=== PATIENT | female | born 1975 | race African-American/Black ===

== ENCOUNTER 2018-07-15 23:18 | Emergency (ER) | payer BC, MEDICAID ==
[~2018-07-15] VITALS: Ht 149.9 cm; Wt 68.0 kg
[~2018-07-15 23:18] MED LIST: AUG500 PO; CLONIDINE HCL0.1 MG PO; FLEXERIL10 MG PO; LAC PO; NORCO1 TA1 PO; PERCOCET1 TA1 PO; SOMA350 MG PO; TAMOXIFEN CITRA20 MG PO; TRAMADOL HCL50 MG PO; VICODIN1 TA1 PO; XAN1 GT
[2018-07-15 23:24] VITALS: Ht 149.9 cm; Wt 68.0 kg
[2018-07-16 00:45] LABS: CALCIUM 8.5 mg/dL (8.5-10.1); CHLORIDE SERUM 107 mmol/L (98-107); CREATININE SERUM 0.9 mg/dL (0.6-1.0); GFR1 > 60 mL/min; GLUCOSE SERUM 103 mg/dL (74-106); POTASSIUM SERUM 3.5 mmol/L (3.5-5.1); SODIUM SERUM 139 mmol/L (136-145)
[2018-07-16 00:50] LABS: ALBUMIN 3.5 g/dL (3.4-5.0); ALKALINE PHOSPHATASE 92 U/L (46-116); ALT/SGPT 29 U/L (14-59); AST/SGOT 24 U/L (15-37); BILIRUBIN TOTAL 0.1 mg/dL (0.20-1.00); TOTAL PROTEIN, SERUM 7.5 g/dL (6.4-8.2)
[2018-07-16 00:54] LABS: BASOPHIL % 0.5 % (0-2); PLATELET COUNT 206 x10^3mcL (130-400); RED CELL DISTRIBUTION WIDTH 14.5 % (11.5-14.5)
[2018-07-16 03:02] VITALS: BP 112/72
== END 2018-07-16 03:02 | disposition home or self-care (01) ==
LOC: ED 23:18
PROVIDERS: Emergency Medicine
DX: J20.9 Acute bronchitis, unspecified (principal); Z88.1 Allergy status to other antibiotic agents; Z90.710 Acquired absence of both cervix and uterus; Z85.3 Personal history of malignant neoplasm of breast; Z98.890 Other specified postprocedural states
CPT/HCPCS: J2270; J2405; J7030; Q0092

== ENCOUNTER 2018-12-17 01:36 | Emergency (ER) | payer BC, MEDICAID ==
[~2018-12-17] VITALS: Ht 149.9 cm; Wt 68.7 kg
[2018-12-17 01:43] VITALS: Ht 149.9 cm; Wt 68.7 kg
[2018-12-17 06:03] VITALS: BP 102/59
== END 2018-12-17 06:03 | disposition home or self-care (01) ==
LOC: ED 01:36
DX: M54.5 Low back pain (principal); G62.9 Polyneuropathy, unspecified; M79.672 Pain in left foot; M79.671 Pain in right foot; Z90.710 Acquired absence of both cervix and uterus; Z85.3 Personal history of malignant neoplasm of breast; Z88.1 Allergy status to other antibiotic agents
CPT/HCPCS: J1885; J2270; J3010